=== PATIENT | female | born 1980 | race Caucasian/White ===

== ENCOUNTER 2020-09-06 16:14 | Emergency (ER) | payer MEDICAID ==
[~2020-09-06] VITALS: Ht 157.5 cm; Wt 86.4 kg
[2020-09-06] MEDS ORDERED: DICL50TA9 PO (16:24)
[2020-09-06 17:55] VITALS: BP 122/81
[2020-09-06] MEDS ORDERED: IBUPROFEN 800 MG TABLET PO ONE (18:00)
== END 2020-09-06 18:00 | disposition home or self-care (01) ==
LOC: EMS 16:14
DX: S63.601A Unspecified sprain of right thumb, initial encounter (principal); S63.501A Unspecified sprain of right wrist, initial encounter; W20.8XXA Other cause of strike by thrown, projected or falling object, initial encounter; Y93.89 Activity, other specified; Y92.89 Other specified places as the place of occurrence of the external cause; Y99.8 Other external cause status

== ENCOUNTER 2020-09-18 14:15 | Emergency (ER) | payer MEDICAID ==
[~2020-09-18] VITALS: Ht 162.6 cm; Wt 84.5 kg
[~2020-09-18 14:15] MED LIST: DICL50TA9 PO
[2020-09-18] MEDS: LIDOCAINE 1% 10 ML VIAL INJ ONE ×2 (15:00→15:01)
[2020-09-18] MEDS ORDERED: PERTUSS(ACELL),DIPH,TET VAC/PF 0.5 ML VIAL IM ONE (15:45)
[2020-09-18 16:13] VITALS: BP 129/78
== END 2020-09-18 16:15 | disposition home or self-care (01) ==
LOC: EMS 14:21
DX: S61.203A Unspecified open wound of left middle finger without damage to nail, initial encounter (principal); W26.8XXA Contact with other sharp object(s), not elsewhere classified, initial encounter; Y93.89 Activity, other specified; Y92.89 Other specified places as the place of occurrence of the external cause; Y99.8 Other external cause status
CPT/HCPCS: 90471; 90715; J3490

== ENCOUNTER 2020-09-20 12:40 | Emergency (ER) | payer MEDICAID ==
[~2020-09-20] VITALS: Ht 167.6 cm; Wt 84.5 kg
[2020-09-20] MEDS ORDERED: CEPH250S35 PO (12:57)
[2020-09-20 15:21] LABS: COVID AG,FIA SOURCE NASOPHARYNGEAL
[2020-09-20 16:04] LABS: RAPID GROUP A STREP NEGATIVE (NEGATIVE)
[2020-09-20 16:52] VITALS: BP 128/72
== END 2020-09-20 16:53 | disposition home or self-care (01) ==
LOC: EMS 12:40
DX: U07.1 COVID-19 (principal); H92.02 Otalgia, left ear; J02.9 Acute pharyngitis, unspecified; M79.89 Other specified soft tissue disorders
CPT/HCPCS: 87426; 87430

== ENCOUNTER 2021-12-01 00:33 | Emergency (ER) | payer MEDICAID ==
[~2021-12-01] VITALS: Ht 157.5 cm; Wt 88.6 kg
[~2021-12-01 00:33] MED LIST changes: +CEPH250S35 PO; +DICL-206 PO; -DICL50TA9 PO
[2021-12-01] MEDS ORDERED: IBUPROFEN 600 MG TABLET PO ONE (03:30)
[2021-12-01] MEDS ORDERED: IBUP-2070 PO (03:36)
[2021-12-01 04:59] VITALS: BP 129/78
== END 2021-12-01 06:25 | disposition home or self-care (01) ==
LOC: EMS 00:37
DX: S20.211A Contusion of right front wall of thorax, initial encounter (principal); S40.011A Contusion of right shoulder, initial encounter; S30.0XXA Contusion of lower back and pelvis, initial encounter; Z79.899 Other long term (current) drug therapy; V49.49XA Driver injured in collision with other motor vehicles in traffic accident, initial encounter; Y93.89 Activity, other specified; Y92.89 Other specified places as the place of occurrence of the external cause; Y99.8 Other external cause status
CPT/HCPCS: 71045; 99283

== ENCOUNTER 2023-01-15 22:07 | Emergency (ER) | payer MEDICAID ==
[~2023-01-15] VITALS: Ht 165.1 cm; Wt 81.8 kg
[~2023-01-15 22:07] MED LIST changes: -DICL-206 PO; +DICL-208 PO; +IBUP-1492 PO
[2023-01-15] MEDS ORDERED: KETOROLAC TROMETHAMINE 30 MG/ML VIAL IM ONE (23:15)
[2023-01-15] MEDS ORDERED: LIDOCAINE 5% TRANSDERMAL PATCH TD ONE (23:15)
[2023-01-15] MEDS ORDERED: ACETAMINOPHEN 500 MG TABLET PO ONE (23:15)
[2023-01-15] MEDS ORDERED: LIDO700A15 TP (23:25)
[2023-01-15 23:46] LABS: BASOPHILS % (AUTO) 0.5 % (0.0-2.0); EOSINOPHILS % (AUTO) 3.6 % (1.0-6.0); HEMOGLOBIN 12.2 g/dL (12.0-16.0); LYMPHOCYTES # (AUTO) 2.6 K/uL (1.0-4.8); MEAN CORPUSCULAR HEMOGLOBIN 29.4 pg (26.0-34.0); MEAN CORPUSCULAR VOLUME 86 fL (80-100); MONOCYTES # (AUTO) 0.7 K/uL (0.1-1.0); MONOCYTES % (AUTO) 10.2 % (2.0-9.0); NEUTROPHILS # (AUTO) 3.6 K/uL (1.8-7.7); NEUTROPHILS % (AUTO) 49.7 % (40.0-70.0); PLATELET COUNT (AUTO) 375 K/uL (150-450); RED BLOOD CELL COUNT(AUTO) 4.17 MIL/uL (4.00-5.20); RED CELL DISTRIBUTION WIDTH 13.6 % (11.5-14.5)
[2023-01-15 23:56] LABS: ANION GAP 7 mmol/L (8-16); CALCIUM, TOTAL 8.3 mg/dL (8.8-10.5); CARBON DIOXIDE 27 mmol/L (22-29); CHLORIDE 105 mmol/L (98-107); CREATININE 0.75 mg/dL (0.60-1.30); GLOMERULAR FILTR. RATE CALC > 60 mL/min (>60); GLUCOSE,RANDOM 116 mg/dL (70-110); POTASSIUM 3.7 mmol/L (3.5-5.1); SODIUM SERUM 139 mmol/L (136-145); UREA NITROGEN, BLOOD 19 mg/dL (7-18)
[2023-01-16 00:02] LABS: ALANINE AMINOTRANSFERASE 31 U/L (12-78); ALBUMIN 3.5 g/dL (3.4-5.0); ALKALINE PHOSPHATASE 51 U/L (46-116); ASPARTATE AMINOTRANSFERASE 23 U/L (15-37); BILIRUBIN,TOTAL 0.2 mg/dL (0.1-1.0); TOTAL PROTEIN, SERUM 6.6 g/dL (6.4-8.2)
[2023-01-16 01:16] LABS: APPEARANCE,URINE CLEAR (CLEAR); BILIRUBIN,URINE NEGATIVE (NEGATIVE); GLUCOSE, URINE (UA) NEGATIVE (NEGATIVE); KETONES,URINE TRACE mg/dL (NEGATIVE); LEUKOCYTE ESTERASE ,URINE SMALL (NEGATIVE); NITRATE,URINE NEGATIVE (NEGATIVE); OCCULT BLOOD,URINE SMALL (NEGATIVE); PH,URINE 6.5 (5.0-8.0); PROTEIN,URINE 30-70 mg/dL (NEGATIVE); SPECIFIC GRAVITIY, URINE 1.039 (1.003-1.030)
[2023-01-16 01:28] LABS: AMORPHOUS SEDIMENT,UR Few /LPF (None Seen); BACTERIA,URINE Moderate /HPF (None Seen); SQUAMOUS EPITHELIAL CELL,UR Few /LPF (None Seen)
[2023-01-16] MEDS ORDERED: CEPH-558 PO (01:32)
[2023-01-16] MEDS ORDERED: CEPHALEXIN MONOHYDRATE 500 MG CAPSULE PO ONE (01:45)
[2023-01-16 01:48] VITALS: BP 117/70
== END 2023-01-16 02:33 | disposition home or self-care (01) ==
LOC: EMS 22:10
DX: N12 Tubulo-interstitial nephritis, not specified as acute or chronic (principal); Z90.49 Acquired absence of other specified parts of digestive tract; Z98.890 Other specified postprocedural states
CPT/HCPCS: 99283; 80053; 81001; 84703; 85025; 36415; 87086; 87186; 96372; J1885